=== PATIENT | male | born 1945 | race Caucasian/White ===

== ENCOUNTER 2022-06-18 09:54 | Observation (INO) | payer MEDICARE, SELFPAY ==
[2022-06-18] VITALS (24 sets, daily range): BP systolic 113–164; BP diastolic 63–117; PULSE 53–121; RESP 12–20; TEMP 36.6–38.3; O2SAT 95–97; BMI 19.6
--- NOTE | 2022-06-18 10:19 | CRLHL7_ITS ---
For Patients: As a result of the Century Cures Act, medical imaging exams and procedure reports are released immediately into your electronic medical record. You may view this report before your referring provider. If you have questions, please contact your health care provider. INDICATION: Right-sided weakness. Unable to complete sentences. TECHNIQUE: Head CT without contrast. COMPARISON: 01/17/2011. FINDINGS: CSF spaces: Within normal limits for age. Brain parenchyma and extra-axial spaces: There are nonspecific low attenuation white matter changes consistent with chronic microvascular disease. Chance-white differentiation is preserved. No sign of mass, hemorrhage, or midline shift. Skull base and calvarium: The visualized paranasal sinuses and mastoid air cells demonstrate no acute or significant findings. The visualized orbits are grossly unremarkable. No skull fractures. IMPRESSION: No acute or significant findings. Please note that all CT scans at this facility use dose modulation, iterative reconstruction, and/or weight-based dosing when appropriate to reduce radiation dose to as low as reasonably achievable. Dictated by Yunier Osuna MD @ 06/18/2022 10:46:13 AM (Electronically Signed)
--- NOTE | 2022-06-18 11:00 | CRLHL7_ITS ---
For Patients: As a result of the Century Cures Act, medical imaging exams and procedure reports are released immediately into your electronic medical record. You may view this report before your referring provider. If you have questions, please contact your health care provider. INDICATION: Acute stroke, aphasia, right-sided weakness. TECHNIQUE: CTA neck with contrast bolus tracking, 3D angiographic rendering using maximum intensity projection (MIP). FINDINGS: There is no significant carotid artery stenosis or dissection. There is atherosclerotic plaque at the origin of the left vertebral artery resulting in moderate stenosis. The soft tissues of the neck are within normal limits. The cervical spine is in normal alignment. Degenerative changes are noted in the cervical spine. IMPRESSION: No significant carotid artery stenosis or dissection. Moderate left vertebral artery origin stenosis. Please note that all CT scans at this facility use dose modulation, iterative reconstruction, and/or weight-based dosing when appropriate to reduce radiation dose to as low as reasonably achievable. Dictated by Bartolo Corbin MD @ 06/18/2022 4:11:44 PM (Electronically Signed)
--- NOTE | 2022-06-18 11:00 | CRLHL7_ITS ---
For Patients: As a result of the Century Cures Act, medical imaging exams and procedure reports are released immediately into your electronic medical record. You may view this report before your referring provider. If you have questions, please contact your health care provider. INDICATION: Acute stroke, aphasia, right-sided weakness. TECHNIQUE: CTA head with contrast bolus tracking, 3D angiographic rendering using maximum intensity projection (MIP). FINDINGS: There is scattered intracranial atherosclerotic disease. There is normal opacification of the intracranial vasculature. There is no large vessel occlusion. No aneurysm is identified. IMPRESSION: No large vessel occlusion. Please note that all CT scans at this facility use dose modulation, iterative reconstruction, and/or weight-based dosing when appropriate to reduce radiation dose to as low as reasonably achievable. Dictated by Bartolo Corbin MD @ 06/18/2022 4:08:59 PM (Electronically Signed)
[2022-06-18 11:16] LABS: Basophils Absolute Auto 0.04 K/uL (0.00-0.30); Basophils Percent Auto 0.6 % (0.0-3.0); Eosinophils Absolute Auto 0.04 K/uL (0.00-0.50); Eosinophils Percent Auto 0.6 % (0.0-7.0); Hematocrit 34.3 % (37.0-53.0); Hemoglobin* 11.1 gm/dL (13.5-17.5); Lymphocytes Percent Auto 11.3 % (20-44); Mean Corpuscular HGB Conc 32 gm/dL (32-36); Mean Corpuscular Hemoglobin 29 pg (26-34); Mean Corpuscular Volume 91 fL (80-100); Monocytes Percent Auto 9.4 % (0.0-11.0); Neutrophils Percent Auto 78.1 % (42.0-72.0); Platelet Count* 351 K/uL (140-440); Red Blood Count 3.77 m/uL (4.30-5.90); White Blood Count* 6.71 K/uL (4.50-11.00)
[2022-06-18] MEDS: ASPIRIN 81 MG TAB.CHEW 324 MG PO (11:17)
[2022-06-18 11:35] LABS: Chloride* 101 mmol/L (96-114); Sodium* 134 mmol/L (135-149)
[2022-06-18 11:36] LABS: INR 1.11 (0.91-1.10); Potassium* 3.8 mmol/L (3.6-5.1); Prothrombin Time 14.9 Seconds
[2022-06-18 11:37] LABS: Partial Thromboplastin Time* 45 Seconds (23-33)
[2022-06-18 11:38] LABS: Creatinine* 0.4 mg/dL (0.5-1.5); Estimated Glomerular Filt Rate 113 ml/min
[2022-06-18 11:39] LABS: Blood Urea Nitrogen* 11 mg/dL (7-30); Calcium* 8.5 mg/dL (8.4-10.6); Carbon Dioxide* 25 mmol/L (20-32); Glucose* 108 mg/dL (60-115)
[2022-06-18 11:40] LABS: Slide Review Reflex No
[2022-06-18 11:42] LABS: C Reactive Protein* 4.8 mg/dL (0.5-1.0)
[2022-06-18 11:55] LABS: PCR FLU A Negative PCR FLU A (Negative); PCR FLU B Negative PCR FLU B (Negative); PCR RSV Negative PCR RSV (Negative)
[2022-06-18 12:06] LABS: SARS PCR* Negative SARS-CoV-2 (Negative)
[2022-06-18 12:11] LABS: Albumin* 3.6 g/dL (3.3-5.0)
[2022-06-18 12:14] LABS: Bilirubin Direct* 0.4 mg/dL (0.0-0.5); Bilirubin Total* 1.4 mg/dL (0.1-1.5); Total Protein* 6.6 g/dL (6.0-8.3)
[2022-06-18 12:15] LABS: Alanine Aminotransferase* 13 U/L (4-50); Alkaline Phosphatase* 51 U/L (40-150); Aspartate Amino Transferase* 16 U/L (12-35)
[2022-06-18 12:28] LABS: Ethanol* < 0.01 % (0.01-0.03); NT Pro B Type NatriureticPept* 1580 pg/mL
[2022-06-18 12:41] LABS: Basophils Absolute Auto 0.06 K/uL (0.00-0.30); Basophils Percent Auto 0.9 % (0.0-3.0); Eosinophils Absolute Auto 0.03 K/uL (0.00-0.50); Eosinophils Percent Auto 0.4 % (0.0-7.0); Hematocrit 32.3 % (37.0-53.0); Hemoglobin* 10.5 gm/dL (13.5-17.5); Lymphocytes Percent Auto 11.3 % (20-44); Mean Corpuscular HGB Conc 33 gm/dL (32-36); Mean Corpuscular Hemoglobin 29 pg (26-34); Mean Corpuscular Volume 91 fL (80-100); Monocytes Percent Auto 9.3 % (0.0-11.0); Neutrophils Percent Auto 78.1 % (42.0-72.0); Platelet Count* 338 K/uL (140-440); Red Blood Count 3.57 m/uL (4.30-5.90); White Blood Count* 6.88 K/uL (4.50-11.00)
[2022-06-18 12:43] LABS: Troponin, Point-of-Care* 0.01 ng/ml (0.01-0.04)
[2022-06-18 12:47] LABS: Slide Review Reflex No
[2022-06-18] MEDS: 0.9 % SODIUM CHLORIDE 1000 ml 1,000 ML IV (13:56)
[2022-06-18] MEDS: ACETAMINOPHEN 500 MG TABLET 1000 MG PO (13:56)
[2022-06-18 14:02] LABS: Amphetamine Screen Urine Negative (Negative); Barbiturate Screen Urine Negative (Negative); Benzodiazepines Screen Urine Negative (Negative); Cannabinoid Screen Urine Negative (Negative); Cocaine Screen Urine Negative (Negative); Methadone Screen Urine Negative (Negative); Methamphetamines Screen Urine Negative (Negative); Opiate Screen Urine Negative (Negative); Oxycodone Screen Urine Negative (Negative); Phencyclidine Screen Urine Negative (Negative); Tricyclic Antidepressant Urine Negative (Negative)
[2022-06-18 14:48] LABS: Appearance Urine Clear (Clear); Bilirubin Urine Negative (Negative); Blood Urine 1+ (Negative); Color Urine Yellow (Yellow); Glucose Urine Negative (Negative); Ketones Urine 1+ (Negative); Leukocyte Esterase Urine Negative (Negative); Nitrite Urine Negative (Negative); Protein Urine Trace (Negative)
[2022-06-18] MEDS: THIAMINE 100 MG TABLET PO (14:55)
[2022-06-18 15:10] LABS: RBC Urine 0-2 (0-2)
--- NOTE | 2022-06-18 16:01 | ED_ITS ---
HPI - Neuro Symptoms/Deficit General Date Seen: 06/18/22 Chief Complaint: Neuro Symptoms/Altered Deficit Stated Complaint: Not able to form complete sentences Time Seen by Provider: 06/18/22 10:18 Source: patient and family Mode of arrival: ambulatory Limitations: no limitations History of Present Illness HPI Narrative: Patient is 76-year-old gentleman lives at home, whose last known well was Friday, his son picked him up today to bring him to a medical appointment the [facility], he was disheveled, and speaking gibberish. This concerned his son, who brought into the emergency room, he [facility], but does see at the [facility]. Known spoken to him over the weekend, so there is no time apparent. Patient is unable to tell me if he has as any pain, history of falls, or injury. History of alcohol use in the past but none recently according to family. Onset (ago): day(s) Timing confirmed by: family member Location: speech History of same: No Severity: moderate Quality: weak Relieving factors: none Exacerbating factors: none On Anticoagulants: No Associated symptoms: confusion Treatments Prior to Arrival: none Related Data Allergies Allergy/AdvReac Type Severity Reaction Status Date / Time No Known Drug Allergies Allergy Verified 06/18/22 12:13 Review of Systems Status of ROS: Reports: unobtainable due to medical condition and unobtainable due to mental status PFSH PFS Social History Smoking Status: Light tobacco smoker Do you use any of these nicotine containing products: None How often do you have a drink containing alcohol: never AUDIT-C Alcohol total score: 0 Exam Narrative: Exam Narrative: Patient is seen in room 7, he is in no apparent distress, he is able to sit up for me, able to walk but he apparently is balance, which is not what it usually is. He really is unable to really answer any questions you have although he seems to follow commands, with lifting his hands and his feet, and also turning his head. He gives a really standard confabulation response. GCS is 10 out of 15. Pupils are equal round reactive to light, arcus senilis is noted bilaterally, TMs are normal, his neck is supple, carotid upstrokes are equal bilaterally, with no carotid bruits, his JVP is flat, he does have a very subtle right-sided facial droop I can notice, when I get him to smile. Anaesthetic Technician strengths are weaker on the right as opposed to the left, as is biceps and triceps on the right. Son tells me that he is right-hand dominant. Lower extremities seem symmetrical bilaterally, chest is good air entry bilaterally with no wheezing crackles noted heart sounds no clicks murmurs or gallops in his abdomen is soft, no guarding no tenderness no masses. Normal male genitalia is noted. Seems a little bit thin and emaciated bilaterally Const: Vital Signs, click to edit/add: Vital Signs - 24 hr 06/18/22 10:03 06/18/22 10:40 06/18/22 10:41 Temperature 97.8 F Pulse Rate 104 H 98 Pulse Rate [Right Pulse Oximeter] 97 Respiratory Rate 18 Blood Pressure 153/101 H Blood Pressure [Ri ght Upper Arm] 164/97 H Pulse Oximetry 96 95 96 Oxygen Delivery Me thod Room Air 06/18/22 11:00 06/18/22 11:02 06/18/22 11:30 Temperature Pulse Rate 106 H 113 H 92 Pulse Rate [Right Pulse Oximeter] Respiratory Rate Blood Pressure 113/89 Blood Pressure [Ri ght Upper Arm] Pulse Oximetry 96 96 96 Oxygen Delivery Me thod 06/18/22 11:32 06/18/22 12:00 06/18/22 13:56 Temperature 101.0 F H 101 F H Pulse Rate 100 Pulse Rate [Right Pulse Oximeter] Respiratory Rate Blood Pressure 147/86 H Blood Pressure [Ri ght Upper Arm] Pulse Oximetry 95 Oxygen Delivery Me thod 06/18/22 11:33 06/18/22 12:00 06/18/22 12:31 Temperature Pulse Rate 121 H Pulse Rate [Right Pulse Oximeter] Respiratory Rate Blood Pressure 147/82 H 148/117 H Blood Pressure [Ri ght Upper Arm] Pulse Oximetry 96 Oxygen Delivery Me thod 06/18/22 12:46 06/18/22 13:01 06/18/22 13:55 Temperature 100 F H Pulse Rate Pulse Rate [Right Pulse Oximeter] Respiratory Rate Blood Pressure 147/99 H 145/86 H 142/84 H Blood Pressure [Ri ght Upper Arm] Pulse Oximetry Oxygen Delivery Me thod 06/18/22 14:31 06/18/22 14:49 06/18/22 14:30 Temperature 100.1 F H 100.1 F H Pulse Rate Pulse Rate [Right Pulse Oximeter] Respiratory Rate Blood Pressure 130/75 Blood Pressure [Ri ght Upper Arm] Pulse Oximetry Oxygen Delivery Me thod 06/18/22 14:30 06/18/22 15:00 06/18/22 15:30 Temperature Pulse Rate Pulse Rate [Right Pulse Oximeter] Respiratory Rate Blood Pressure 130/75 133/103 H 136/85 Blood Pressure [Ri ght Upper Arm] Pulse Oximetry Oxygen Delivery Me thod Documenting provider has reviewed patient's vital signs: yes Course Course Hospital Course: Course in the emergency room, head CT was done, this is no evidence of stroke in the patient was given aspirin based on this. CT angio of the head, and neck did not show any acute abnormalities, urinalysis should not show any evidence of a cath problem on urinalysis. Basic metabolic profile was reassuring, C-reactive protein was slightly elevated at 4.8, urine drug screen was negative blood alcohol was negative, patient received a fine min here, has a my concerned this possibly was a warning keys type confabulation situation, I spoke to the patient multiple times, and son. They are rather unhappy that I do not have a formal diagnosis, but I explained to them the fact that move last known well would preclude us doing anything aggressive with clot busting agents. At this point I think 1 of 2 things are is occurring here, in the setting of the confabulation either he has had a stroke, or possibly this is a werenikes type situation. The other possibility is infection, and blood cultures were done. His temperature came down nicely with Tylenol, and his white count is not elevated, and I do not think there is any evidence of sepsis here, with his normal vital signs. I do think we have the element time here in watching, he may require an MRI as an inpatient. I I discussed with the inpatient physician, Dr. Biswas for admission. Vital Signs Vital signs: Initial Vital Signs Temperature 97.8 F 06/18/22 10:03 Temperature Source Temporal Artery Scan 06/18/22 10:03 Pulse Rate 97 06/18/22 10:03 Respiratory Rate 18 06/18/22 10:03 Blood Pressure 164/97 H 06/18/22 10:03 Blood Pressure Mean 119 H 06/18/22 10:03 Blood Pressure Position Sitting 06/18/22 10:03 Pulse Oximetry 96 06/18/22 10:03 Oxygen Delivery Method Room Air 06/18/22 10:03 Vital Signs Temperature 97.8 F 06/18/22 10:03 Pulse Rate 97 06/18/22 10:03 Respiratory Rate 18 06/18/22 10:03 Blood Pressure 164/97 H 06/18/22 10:03 Pulse Oximetry 96 06/18/22 10:03 Oxygen Delivery Method Room Air 06/18/22 10:03 Temperature 100.1 F H 06/18/22 14:49 Pulse Rate 121 H 06/18/22 11:33 Respiratory Rate 18 06/18/22 10:03 Blood Pressure 136/85 06/18/22 15:30 Pulse Oximetry 96 06/18/22 11:33 Oxygen Delivery Method Room Air 06/18/22 10:03 MDM - Neuro Symptoms/Deficit MDM Narrative Medical decision making narrative: Multiple differential diagnoses were considered for altered mental status. The life-threatening differential diagnosis considered include: Meningitis/encepha litis, bacteremia, subdural, cerebrovascular accident, SAH, and hypertensive encephalopathy. Other differential diagnosis included include medication effect, hypoxia, hypoglycemia, hypercalcemia, hypo or hypernatremia, hypothyroidism, hepatic encephalopathy, carbon monoxide poisoning, UTI, pneumonia, depression, seizure, as well as other etiologies. Medical Records Attestation: I reviewed the patient's medical records. Lab Data Attestation: I reviewed the patient's lab results. Labs: Lab Results 06/18/22 06/18/22 06/18/22 Range/Units 10:45 11:54 12:09 WBC 6.71 6.88 (4.50-11.00) K/uL RBC 3.77 L 3.57 L (4.30-5.90) m/uL Hgb 11.1 L 10.5 L (13.5-17.5) gm/dL Hct 34.3 L 32.3 L (37.0-53.0) % MCV 91 91 (80-100) fL MCH 29 29 (26-34) pg MCHC 32 33 (32-36) gm/dL RDW Coeff of Ritika 13.0 13.0 (11.5-15.5) % Plt Count 351 338 (140-440) K/uL Neut % (Auto) 78.1 H 78.1 H (42.0-72.0) % Lymph % (Auto) 11.3 L 11.3 L (20-44) % [place] % (Auto) 9.4 9.3 (0.0-11.0) % Eos % (Auto) 0.6 0.4 (0.0-7.0) % Baso % (Auto) 0.6 0.9 (0.0-3.0) % Neut # (Auto) 5.20 5.40 (1.7-7.0) K/uL Lymph # (Auto) 0.80 L 0.80 L (0.90-2.90) K/uL [place] # (Auto) 0.60 0.60 (0.00-0.90) K/UL Eos # (Auto) 0.04 0.03 (0.00-0.50) K/uL Baso # (Auto) 0.04 0.06 (0.00-0.30) K/uL INR 1.11 H (0.91-1.10) APTT 45 H (23-33) Seconds Sodium 134 L (135-149) mmol/L Potassium 3.8 (3.6-5.1) mmol/L Chloride 101 (96-114) mmol/L Carbon Dioxide 25 (20-32) mmol/L BUN 11 (7-30) mg/dL Creatinine 0.4 L (0.5-1.5) mg/dL Estimated GFR 113 ml/min Glucose 108 (60-115) mg/dL Calcium 8.5 (8.4-10.6) mg/dL Total Bilirubin 1.4 (0.1-1.5) mg/dL Direct Bilirubin 0.4 (0.0-0.5) mg/dL AST 16 (12-35) U/L ALT 13 (4-50) U/L Alkaline Phosphatase 51 (40-150) U/L C-Reactive Protein 4.8 H (0.5-1.0) mg/dL NT-Pro-B Natriuret Pep 1580 pg/mL Total Protein 6.6 (6.0-8.3) g/dL Albumin 3.6 (3.3-5.0) g/dL Urine Color (Yellow) Urine Appearance (Clear) Urine pH (5.0-8.5) Ur Specific [place] (1.000-1.030) Urine Protein (Negative) Urine Glucose (UA) (Negative) Urine Ketones (Negative) Urine Blood (Negative) Urine Nitrite (Negative) Urine Bilirubin (Negative) Urine Urobilinogen (0.2-1.0) Ur Leukocyte Esterase (Negative) Urine RBC (0-2) Urine WBC (0-5) Ur Squamous Epith Cells (None-Few) Urine Bacteria (None) Urine Opiates Screen (Negative) Ur Oxycodone Screen (Negative) Urine Methadone Screen (Negative) Ur Propoxyphene Screen (Negative) Ur Barbiturates Screen (Negative) U Tricyclic Antidepress (Negative) Ur Phencyclidine Scrn (Negative) Ur Amphetamines Screen (Negative) U Methamphetamines Scrn (Negative) U Benzodiazepines Scrn (Negative) Urine Cocaine Screen (Negative) U Marijuana (THC) Screen (Negative) Ur Drug Screen Comment Ethyl Alcohol < 0.01 L (0.01-0.03) % SARS-CoV-2 (PCR) Negative SARS-CoV-2 (Negative) Influenza Type A (PCR) Negative PCR FLU A (Negative) Influenza Type B (PCR) Negative PCR FLU B (Negative) RSV (PCR) Negative PCR RSV (Negative) POC Troponin I 0.01 (0.01-0.04) ng/ml 06/18/22 Range/Units 13:47 WBC (4.50-11.00) K/uL RBC (4.30-5.90) m/uL Hgb (13.5-17.5) gm/dL Hct (37.0-53.0) % MCV (80-100) fL MCH (26-34) pg MCHC (32-36) gm/dL RDW Coeff of Ritika (11.5-15.5) % Plt Count (140-440) K/uL Neut % (Auto) (42.0-72.0) % Lymph % (Auto) (20-44) % [place] % (Auto) (0.0-11.0) % Eos % (Auto) (0.0-7.0) % Baso % (Auto) (0.0-3.0) % Neut # (Auto) (1.7-7.0) K/uL Lymph # (Auto) (0.90-2.90) K/uL [place] # (Auto) (0.00-0.90) K/UL Eos # (Auto) (0.00-0.50) K/uL Baso # (Auto) (0.00-0.30) K/uL INR (0.91-1.10) APTT (23-33) Seconds Sodium (135-149) mmol/L Potassium (3.6-5.1) mmol/L Chloride (96-114) mmol/L Carbon Dioxide (20-32) mmol/L BUN (7-30) mg/dL Creatinine (0.5-1.5) mg/dL Estimated GFR ml/min Glucose (60-115) mg/dL Calcium (8.4-10.6) mg/dL Total Bilirubin (0.1-1.5) mg/dL Direct Bilirubin (0.0-0.5) mg/dL AST (12-35) U/L ALT (4-50) U/L Alkaline Phosphatase (40-150) U/L C-Reactive Protein (0.5-1.0) mg/dL NT-Pro-B Natriuret Pep pg/mL Total Protein (6.0-8.3) g/dL Albumin (3.3-5.0) g/dL Urine Color Yellow (Yellow) Urine Appearance Clear (Clear) Urine pH 7.0 (5.0-8.5) Ur Specific [place] 1.020 (1.000-1.030) Urine Protein Trace A (Negative) Urine Glucose (UA) Negative (Negative) Urine Ketones 1+ A (Negative) Urine Blood 1+ A (Negative) Urine Nitrite Negative (Negative) Urine Bilirubin Negative (Negative) Urine Urobilinogen 4.0 A (0.2-1.0) Ur Leukocyte Esterase Negative (Negative) Urine RBC 0-2 (0-2) Urine WBC 2-5 (0-5) Ur Squamous Epith Cells None (None-Few) Urine Bacteria None (None) Urine Opiates Screen Negative (Negative) Ur Oxycodone Screen Negative (Negative) Urine Methadone Screen Negative (Negative) Ur Propoxyphene Screen Negative (Negative) Ur Barbiturates Screen Negative (Negative) U Tricyclic Antidepress Negative (Negative) Ur Phencyclidine Scrn Negative (Negative) Ur Amphetamines Screen Negative (Negative) U Methamphetamines Scrn Negative (Negative) U Benzodiazepines Scrn Negative (Negative) Urine Cocaine Screen Negative (Negative) U Marijuana (THC) Screen Negative (Negative) Ur Drug Screen Comment See Note Ethyl Alcohol (0.01-0.03) % SARS-CoV-2 (PCR) (Negative) Influenza Type A (PCR) (Negative) Influenza Type B (PCR) (Negative) RSV (PCR) (Negative) POC Troponin I (0.01-0.04) ng/ml Imaging Data CT scan - head: Attestation: I have reviewed the pertinent imaging results. My impression: Patient: DELVIS AREVALO Facility:?[facility] Patient ID:?[id number] Site Patient ID:?[id number]. Site :?[id number] Study:?CT Head STROKE PROTOCOL wo contrast STROKE-06/18/2022 10:40:16 AM Ordering Physician:Dixie Gallegos Final Report: INDICATION: Right-sided weakness. Unable to complete sentences. TECHNIQUE: Head CT without contrast. COMPARISON: 01/17/2011. FINDINGS: CSF spaces: Within normal limits for age. Brain parenchyma and extra-axial spaces: There are nonspecific low attenuation white matter changes consistent with chronic microvascular disease. Chance-white differentiation is preserved. No sign of mass, hemorrhage, or midline shift. Skull base and calvarium: The visualized paranasal sinuses and mastoid air cells demonstrate no acute or significant findings. The visualized orbits are grossly unremarkable. No skull fractures. IMPRESSION: No acute or significant findings. Please note that all CT scans at this facility use dose modulation, iterative reconstruction, and/or weight-based dosing when appropriate to reduce radiation dose to as low as reasonably achievable. Dictated by Ynuier Osuna MD @ 06/18/2022 10:46:13 AM ----- ADDENDUM ----- Results were communicated to Dr. Carrillo on 06/18/2022 at 10:49 a.m. Dictated by Yunier Osuna MD @ Jun 18 2022 11:34AM (Electronic Signature) Patient: DELVIS AREVALO Facility:?[facility] Patient ID:?[id number] Site Patient ID:?[id number]. Site :?1945 Study:?CT Head Angio 95CC ISOVUE 370 NON ACUTE-06/18/2022 12:33:44 PM Ordering Physician:Dixie Gallegos Preliminary Report: FINDINGS: The visualized 1st and 2nd order intracranial vessels appear patent. No convincing evidence of high grade narrowing or prominent aneurysm formation. Dictated by Sha Pierce MD @ 06/18/2022 12:51:29 PM Read by:Reena Pierce MD @ 06/18/2022 12:51:37 ECG Data Attestation: I personally reviewed and interpreted this ECG as follows: ECG interpretation date: 06/18/22 Prior ECG tracings: not available for review Interpretation: EKG shows normal sinus rhythm with a short ND interval, incomplete right bundle- branch block, nothing acute. Discharge Plan Discharge Clinical Impression: Confabulation, Weakness Patient Disposition: Admitted As Inpatient Condition: Stable
--- NOTE | 2022-06-18 19:38 | PC.NURSE ---
Patient admitted from ED and bought up to unit at 1710. Brother Juan accompanied him as well as his niece. Brother stated that when he went to pick Abram up for an appointment he found him confused and sentences were not making any sense. Patient is unhappy about being admitted and per his own words wishes to leave and go home. Patients vss, he is on RA, SBA to BR, regular diet. During conversation with the patient it was noted that his sentences were completely disconnected and made no sense.
[2022-06-18] MEDS: SODIUM CHLORIDE 0.9 % (FLUSH) 10 ML SYRINGE 5 ML IVF (21:15)
[2022-06-18] MEDS: THIAMINE 250 MG in 0.9 % SODIUM CHLORIDE 100 ml 100 ML 102.5 MG IVPB (21:15)
--- NOTE | 2022-06-18 22:27 | P.IMHP_ITS ---
Hospitalist- H&P: HPI History of Present Illness Time Seen by Provider: 16:00 Date Seen: 06/18/22 Chief complaint: Not able to form complete sentences Narrative: Abram Broussard is a 76 year old man who presents to the hospital emergency department today for assessment of a change in the patient's mentation seemingly. Last time family members spoke with him were saw him was about 5 days ago. The patient's brother, Juan, went to Abram's home today to pick him up and bring him to a clinic appointment. Patient seemingly was not understanding his brother as his brother tried to speak with him, additionally the patient when he spoke seem to speak in a word salad, not making sense. Ordinarily Abram is feisty and not willing to adhere to the advice of others. Oddly enough today the patient was quite willing to come to the hospital emergency department upon his brother recommending that he do so. Patient was able to dress himself including time his own shoes, walk to the car and then into the hospital. Main problem seem to be the patient seemingly not understanding everything that was spoken to him and the patient speaking in word salad. It is difficult to get any meaningful history from the patient. Seemingly the patient is not understanding all that we ask or say to him. The patient's brother and niece are here with him in the emergency department today. The niece does call the patient's neighbors and friends and finds out that 1 of the neighbors saw the patient as recently as yesterday and that the patient was well, normal, not like he is today at all in terms of interacting. Seemingly the patient's condition changes suddenly sometime between yesterday and today. Review of Systems Status of ROS: Reports: 10 or more systems reviewed and unremarkable except as noted in History and below Narrative: Again, as best as I can tell the patient denies any other problems. He specifically denies chest heaviness, pressure, tightness, or pain. Denies syncope or near-syncope. Denies palpitations or chest fluttering. Denies cough, dyspnea at rest, dyspnea with exertion, paroxysmal nocturnal dyspnea, orthopnea. Denies lower extremity edema. Denies lightheadedness. Denies nausea or vomiting. Acknowledges decreased appetite. Denies fevers, rigors, diaphoresis. Denies trauma or injury. No recent travel or illness. Denies myalgias or arthralgias. Denies any other focal motor neurologic deficits. Denies any blood loss of any sort. The patient's brother, Juan, notes that he has been concerned that the patient seems to be gradually losing weight. On the other hand neighbors often bring meals for him and he seems to eat well enough based on what they observed. Additionally however up until 2-4 weeks ago patient had been drinking beer daily. As I review his medical records and discuss the patient's beer consumption in the past, references are made to him previously drinking anywhere from 4-12 beers daily. Mention is made in his medical records that he has had alcohol abuse disorder for number of years. PFSH PFSH Medical History Alcohol abuse ?F10.10 - Alcohol abuse, uncomplicated (ICD-10) Cataracts, bilateral ?H26.9 - Unspecified cataract (ICD-10) Essential hypertension ?I10 - Essential (primary) hypertension (ICD-10) History of cardiac arrhythmia ?Z86.79 - Personal history of other diseases of the circulatory system (ICD- 10) History of vitreous hemorrhage of left eye ?Z86.69 - Personal history of other diseases of the nervous system and sense organs (ICD-10) Hyperlipidemia ?E78.5 - Hyperlipidemia, unspecified (ICD-10) Impaired fasting glucose ?R73.01 - Impaired fasting glucose (ICD-10) Tobacco use ?Z72.0 - Tobacco use (ICD-10) Social History Highest level of school completed/degree received: high school graduate Smoking Status: Never smoker Do you use any of these nicotine containing products: None How often do you have a drink containing alcohol: never AUDIT-C Alcohol total score: 0 Non-prescribed substance use: denies use Caffeine: No service: Yes Meds Home Medications and Allergies Home Medications Medication Instructions Recorded Confirmed Type meloxicam 15 mg tablet 15 mg PO DAILY 06/18/22 06/18/22 History Home Medication Comments: 1. He was started on the meloxicam 3-4 weeks ago due to arthralgias 2. Atorvastatin 20 mg daily 3. Lisinopril 20 mg daily Allergies Allergy/AdvReac Type Severity Reaction Status Date / Time No Known Drug Allergies Allergy Verified 06/18/22 12:13 Exam Narrative: Exam Narrative: Appears in no acute distress. Appears comfortable. Awake. Interactive. Seemingly does not understand everything spoken to him. For the most part does not follow simple 1 or 2 step commands. When he does speak for the most part you can understand what he stain but he s peaking in word salad. He seems to think that he is speaking meaningfully. No other focal motor neurologic deficits. Moves all 4 extremities. Resting tremor right hand. No asterixis. Has broad-based stance and an ataxic gait. Does have muscle wasting peripherally in upper and lower extremities. Cachectic chest wall. Cranial nerves 3-12 are grossly intact including his eyes with no obvious ocular motor dysfunction. Tympanic membranes are normal. Midline nasal septum. Dentition in poor repair. Moist buccal mucosa. Neck is supple. Midline trachea. No adenopathy. Lungs are clear to auscultation. No CVA tenderness. Heart tones with regular rhythm, normal S1-S2. Abdomen is thin with active bowel sounds, soft, nontender. Extremities with trace edema pretibially bilaterally. Skin intact. Const: Vital Signs, click to edit/add: Vital Signs - 24 hr 06/18/22 10:03 06/18/22 10:40 06/18/22 10:41 Temperature 97.8 F Pulse Rate 104 H 98 Pulse Rate [Pulse Oximeter] Pulse Rate [Right Pulse Oximeter] 97 Respiratory Rate 18 Blood Pressure 153/101 H Blood Pressure [Ri ght Arm] Blood Pressure [Ri ght Upper Arm] 164/97 H Pulse Oximetry 96 95 [facility] 06/18/22 11:00 06/18/22 11:02 06/18/22 11:30 Temperature Pulse Rate 106 H 113 H 92 Pulse Rate [Pulse Oximeter] Pulse Rate [Right Pulse Oximeter] Respiratory Rate Blood Pressure 113/89 Blood Pressure [Ri ght Arm] Blood Pressure [Ri ght Upper Arm] Pulse Oximetry 96 96 96 Oxygen Delivery Ma thod 06/18/22 11:32 06/18/22 12:00 06/18/22 13:56 Temperature 101.0 F H 101 F H Pulse Rate 100 Pulse Rate [Pulse Oximeter] Pulse Rate [Right Pulse Oximeter] Respiratory Rate Blood Pressure 147/86 H Blood Pressure [Ri ght Arm] Blood Pressure [Ri ght Upper Arm] Pulse Oximetry 95 Oxygen Delivery Ma thod 06/18/22 11:33 04/25/23 12:00 06/18/22 12:31 Temperature Pulse Rate 121 H Pulse Rate [Pulse Oximeter] Pulse Rate [Right Pulse Oximeter] Respiratory Rate Blood Pressure 147/82 H 148/117 H Blood Pressure [Ri ght Arm] Blood Pressure [Ri ght Upper Arm] Pulse Oximetry 96 Oxygen Delivery Ma thod 06/18/22 12:46 06/18/22 13:01 06/18/22 13:55 Temperature 100 F H Pulse Rate Pulse Rate [Pulse Oximeter] Pulse Rate [Right Pulse Oximeter] Respiratory Rate Blood Pressure 147/99 H 145/86 H 142/84 H Blood Pressure [Ri ght Arm] Blood Pressure [Ri ght Upper Arm] Pulse Oximetry Oxygen Delivery Ma thod 06/18/22 14:31 06/18/22 14:49 06/18/22 14:30 Temperature 100.1 F H 100.1 F H Pulse Rate Pulse Rate [Pulse Oximeter] Pulse Rate [Right Pulse Oximeter] Respiratory Rate Blood Pressure 130/75 Blood Pressure [Ri ght Arm] Blood Pressure [Ri ght Upper Arm] Pulse Oximetry Oxygen Delivery Ma thod 06/18/22 14:30 06/18/22 15:00 06/18/22 15:30 Temperature Pulse Rate Pulse Rate [Pulse Oximeter] Pulse Rate [Right Pulse Oximeter] Respiratory Rate Blood Pressure 130/75 133/103 H 136/85 Blood Pressure [Ri ght Arm] Blood Pressure [Ri ght Upper Arm] Pulse Oximetry Oxygen Delivery Ma thod 06/18/22 17:10 06/18/22 18:00 06/18/22 20:45 Temperature 99 F 98.1 F Pulse Rate Pulse Rate [Pulse Oximeter] 77 Pulse Rate [Right Pulse Oximeter] Respiratory Rate 12 12 16 Blood Pressure Blood Pressure [Ri ght Arm] 131/107 H 123/65 Blood Pressure [Ri ght Upper Arm] Pulse Oximetry 95 97 Oxygen Delivery Me thod Room Air Room Air Documenting provider has reviewed patient's vital signs: yes Hospitalist - H&P: Result Labs Labs: Short CBC 06/18/22 06/18/22 Range/Units 10:45 12:09 WBC 6.71 6.88 (4.50-11.00) K/uL Hgb 11.1 L 10.5 L (13.5-17.5) gm/dL Hct 34.3 L 32.3 L (37.0-53.0) % Plt Count 351 338 (140-440) K/uL BMP 06/18/22 10:45 Sodium 134 L Potassium 3.8 Chloride 101 Carbon Dioxide 25 BUN 11 Creatinine 0.4 L Glucose 108 Calcium 8.5 Liver Function 06/18/22 Range/Units 10:45 Total Bilirubin 1.4 (0.1-1.5) mg/dL Direct Bilirubin 0.4 (0.0-0.5) mg/dL AST 16 (12-35) U/L ALT 13 (4-50) U/L Alkaline Phosphatase 51 (40-150) U/L Albumin 3.6 (3.3-5.0) g/dL Urine 06/18/22 Range/Units 13:47 Urine Color Yellow (Yellow) Urine Appearance Clear (Clear) Urine pH 7.0 (5.0-8.5) Ur Specific [place] 1.020 (1.000-1.030) Urine Protein Trace A (Negative) Urine Glucose (UA) Negative (Negative) ECG Attestation: I personally reviewed and interpreted this ECG as follows: Interpretation: Sinus rhythm. Occasional premature ventricular complexes. Incomplete right bundle-branch block. Imaging CT scan - head: Attestation: I have reviewed the pertinent imaging results. Radiologist's impression: CT without contrast demonstrates no acute abnormalities. CT angiogram demonstrates no large vessel abnormalities. Assessment and Plan Assessment and plan (1) Aphasia: Problem comment: Acute. Seemingly mixed expressive and receptive. Status: Acute (2) Ataxic gait determined by examination: Problem comment: Not acute. Chronic according to patient's brother and niece. Status: Acute (3) Alcohol abuse: Problem comment: Presumably has not had consumed alcohol for the last 2-4 weeks. The large amount of urobilinogen in his urine is concerning for the possibility of underlying cirrhosis, I doubt hemolytic anemia causing the urobilinogen in the urine. Status: Acute (4) Confabulation: Problem comment: I am concerned about the possibility of a Wernicke encephalopathy in this patient. Status: Acute Plan 1. Reviewed with patient, patient's brother, Juan, and patient's niece, Kayla. Abram is initially hesitant to be admitted but then agrees to proceed with persuasion from his brother and niece. 2. MRI of the head to assess for possible stroke in Broca's area or Wernicke ease area. With his recent initiation of meloxicam he certainly would be at a much higher risk of getting stroke from this. I discontinued the meloxicam promptly. For now I am not starting aspirin. 3. Patient is at high risk for Wernicke encephalopathy. He certainly has a lot of the criteria for Wernicke's encephalopathy. Unfortunately there is no laboratory diagnostic testing for this. This is in great measure a diagnosis of exclusion in the setting of high degree of suspicion. As such, I am initiating IV thiamin 250 mg IV every 8 hours for 3 days. If we continue to be suspicious that this is indeed a Wernicke's encephalopathy a need to continue thiamin 20 50 mg IV once daily for 5 additional days before we can switch to the oral. 4. I will order a abdominal ultrasound to assess the anatomy of his liver in particular. Again I am worried about the possibility underlying cirrhosis with a urobilinogen that I am seeing in the urine. 5. With pharmacy review his outside medications for confirmation. 6. With physical therapy, occupational therapy, and speech therapy assess the patient. I will also have social security benefits interviewer to assist with discharge disposition planning. It is possible patient may not be in a position to return home due to safety concerns. Patient's brother Juan understands this.
[2022-06-18] MEDS: 0.9 % SODIUM CHLORIDE 250 ml IV (22:45)
[2022-06-19] VITALS (7 sets, daily range): BP systolic 121–144; BP diastolic 66–84; PULSE 62–105; RESP 16–22; TEMP 36.4–37.6; O2SAT 94–98
[2022-06-19 06:16] LABS: HCO3 VBG 23 mmol/L (21-28); Lactate* 0.8 mmol/L (0.5-1.9); PCO2 VBG 33 mmHG (40-50); PO2 VBG 57.7 mmHG (25-47); pH VBG 7.454 (7.32-7.43)
[2022-06-19 06:28] LABS: Hemoglobin* 9.3 gm/dL (13.5-17.5); Immature Reticulocyte Fraction 9.6 % (2.3-13.4); Reticulocyte Hemoglobin Equivi 27.7 pg (29.0-35.0); Reticulocyte Percent 1.1 % (0.5-2.0); Reticulocytes Absolute 0.03 # (0.03-0.08)
[2022-06-19 06:50] LABS: Chloride* 103 mmol/L (96-114); Sodium* 131 mmol/L (135-149)
[2022-06-19 06:51] LABS: Iron* 35 ug/dL (49-181); Potassium* 3.8 mmol/L (3.6-5.1)
[2022-06-19 06:53] LABS: Blood Urea Nitrogen* 12 mg/dL (7-30); Carbon Dioxide* 22 mmol/L (20-32); Cholesterol* 80 mg/dL (90-199); Creatinine* 0.4 mg/dL (0.5-1.5); Est. Creatinine Clearance* 49.61; Estimated Glomerular Filt Rate 112 ml/min; Glucose* 74 mg/dL (60-115)
[2022-06-19 06:54] LABS: Calcium* 7.9 mg/dL (8.4-10.6); HDL Cholesterol* 35 mg/dL (>=40); LDL Cholesterol Calculated 32 mg/dL (<100); Magnesium* 1.6 mg/dL (1.5-2.6); Phosphorus* 3.3 mg/dL (2.5-4.5); Triglycerides* 65 mg/dL (40-149)
--- NOTE | 2022-06-19 07:00 | CRLHL7_ITS ---
For Patients: As a result of the Century Cures Act, medical imaging exams and procedure reports are released immediately into your electronic medical record. You may view this report before your referring provider. If you have questions, please contact your health care provider. INDICATION: acute Broca`s aphasia TECHNIQUE: Noncontrast Sagittal T1, Axial FSE T2, Flair, DWI images submitted. COMPARISON: CT angiogram and had CT a previous day FINDINGS: Study is markedly degraded on almost all acquisitions secondary to motion which limits fine detail evaluation. The scalp and calvarium are normal. The superior sagittal sinus demonstrates normal venous flow. The corpus callosum is normal in shape and signal intensity. The posterior fossa is unremarkable. The pituitary and sella are normal. The brainstem and craniocervical junction are unremarkable. The upper cervical spinal cord and spine are normal. 8 x 4 millimeter area of restricted diffusion within the posterior aspect the left basal ganglia external capsule.. The susceptibility weighted sequences reveal no gross evidence of acute or chronic hemorrhage. The ventricles are normal in size and position without evidence of hydrocephalus. There is mild, age-appropriate generalized atrophy. The visualized portions of the orbits, mastoids and paranasal sinuses are grossly unremarkable. Normal flow voids are grossly demonstrated in the carotid arteries and basilar artery. 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 Dictated by Sundeep Piper MD @ 06/19/2022 1:26:35 PM (Electronically Signed)
[2022-06-19 07:02] LABS: Percent Iron Saturation 17 % (20-50); Total Iron Binding Capacity 212 ug/dL (261-462)
--- NOTE | 2022-06-19 07:15 | CRLHL7_ITS ---
For Patients: As a result of the Century Cures Act, medical imaging exams and procedure reports are released immediately into your electronic medical record. You may view this report before your referring provider. If you have questions, please contact your health care provider. INDICATION: Right upper quadrant abdomen pain. TECHNIQUE: Ultrasound abdomen limited. Sonographic images of the right upper quadrant were obtained using weaver-scale and color Doppler images. COMPARISON: None. FINDINGS: Imaging is suboptimal due to bowel gas and body habitus. Portions of the gallbladder and liver were not visualized and the pancreas was not visualized. Liver: Partially obscured. No definite findings of cirrhosis. No focal hepatic lesion detected. Gallbladder: Partially obscured. No cholelithiasis detected. Gallbladder wall measures 1.4 millimeters, within normal limits. No pericholecystic fluid. Common bile duct: Not visualized Pancreas: Not visualized Right kidney: Normal in size. Normal echotexture and cortex. No suspicious masses, stones, or hydronephrosis. Vasculature: The visualized portion of the IVC is unremarkable. The aorta was obscured. IMPRESSION: 1. Limited examination. The pancreas and aorta were not visualized and portions of the liver and gallbladder were not visualized. 2. No definite findings of hepatic cirrhosis. If there is ongoing concern, consider CT or MRI. Dictated by Yunier Osuna MD @ 06/19/2022 8:26:03 AM (Electronically Signed)
[2022-06-19 07:40] LABS: Vitamin B12* 251 pg/mL (243-894)
--- NOTE | 2022-06-19 08:01 | PC.NURSE ---
Pt is alert is oriented to self only, arouses to name. Pt has been scoring a 10 on the [place] scale, he is still having difficulties finding words and answering with yes and no, responses are delayed. Pt has difficulties following commands. Pt slept through most of night. Pt is up A2, voiding. Pt is on a regular diet but has refused offers of food. Pt is drinking?water when prompted.
[2022-06-19] MEDS: SODIUM CHLORIDE 0.9 % (FLUSH) 10 ML SYRINGE 5 ML IVF ×2 (09:34→20:58)
[2022-06-19] MEDS: THIAMINE 250 MG in 0.9 % SODIUM CHLORIDE 100 ml 100 ML 102.5 MG IVPB (09:35)
[2022-06-19 09:55] LABS: Ammonia* < 9.0 umol/L (13.1-30.0)
--- NOTE | 2022-06-19 10:16 | NUTR.NU ---
RDN with MD consult for possible Wernicke encephalopathy. Patient is not appropriate to visit at this time. RDN will continue to monitor and follow-up prn.
--- NOTE | 2022-06-19 12:14 | PM.IMPN1 ---
Progress Note: A&P Assessment and plan (1) Aphasia: Problem details: - acute, mixed receptive and expressive Status: Acute (2) Ataxic gait determined by examination: Problem details: - not acute; chronic according to patient's brother and niece Status: Acute (3) Alcohol abuse: Problem details: - Presumably has not had consumed alcohol for the last 2-4 weeks - large amount of urobilinogen in his urine is concerning for the possibility of underlying cirrhosis, doubt hemolytic anemia causing the urobilinogen in the urine - no evidence of cirrhosis on abdominal ultrasound Status: Acute (4) CVA (cerebral vascular accident): Problem details: - MRI 06/19: 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 - reviewed with Stroke Neurology on 06/19; patient at increased risk of bleeding 2/2 ETOH hx, but anticipate ETOH cessation during rehab - initiate dual anti-platelet therapy for 30 days, then aspirin as monotherapy - TTE ordered - appreciate input from therapies and social work regarding dispo Status: Acute Plan - Per above; will require SNF versus LTAC upon discharge - reviewed with brother Juan at bedside, questions answered - discussed patient's history and goals of care with Juan; after discussion, changed code status to DNR/DNI Subjective Date Seen: 06/19/22 Interval history: No acute events overnight. Patient continues to have speech deficits and clumsiness of his right hand, unable to feed himself. MRI exhibits an acute infarct within the posterior aspect of the external capsule of the left basal ganglia. Exam Narrative: Exam Narrative: GEN: Awake and sitting up in bed HEENT: EOMIs bilaterally, no scleral icterus CV: RRR, No concerning murmurs, rubs, or gallops R: No tachypnea, no concerning wheezing Ext: wwp, no concerning edema Skin: No concerning skin lesions or rashes on exposed skin Neuro: No facial droop, noted clumsiness of R hand, able to answer yes/no questions appropriately, gait not observed Const: Vital Signs, click to edit/add: Vital Signs - 24 hr 06/18/22 13:56 06/18/22 12:31 06/18/22 12:46 Temperature 101 F H Pulse Rate Pulse Rate [Pulse Oximeter] Respiratory Rate Blood Pressure 148/117 H 147/99 H Blood Pressure [Le ft Arm] Blood Pressure [Ri ght Arm] Pulse Oximetry Oxygen Delivery Me thod 06/18/22 13:01 06/18/22 13:55 06/18/22 14:31 Temperature 100 F H 100.1 F H Pulse Rate Pulse Rate [Pulse Oximeter] Respiratory Rate Blood Pressure 145/86 H 142/84 H Blood Pressure [Le ft Arm] Blood Pressure [Ri ght Arm] Pulse Oximetry Oxygen Delivery Me thod 06/18/22 14:49 06/18/22 14:30 06/18/22 14:30 Temperature 100.1 F H Pulse Rate Pulse Rate [Pulse Oximeter] Respiratory Rate Blood Pressure 130/75 130/75 Blood Pressure [Le ft Arm] Blood Pressure [Ri ght Arm] Pulse Oximetry Oxygen Delivery Me thod 06/18/22 15:00 06/18/22 15:30 06/18/22 17:10 Temperature 99 F Pulse Rate Pulse Rate [Pulse Oximeter] Respiratory Rate 12 Blood Pressure 133/103 H 136/85 Blood Pressure [Le ft Arm] Blood Pressure [Ri ght Arm] 131/107 H Pulse Oximetry 95 Oxygen Delivery Me thod Room Air 06/18/22 18:00 06/18/22 20:45 06/18/22 19:00 Temperature 98.1 F Pulse Rate 53 L Pulse Rate [Pulse Oximeter] 77 Respiratory Rate 12 16 Blood Pressure Blood Pressure [Le ft Arm] Blood Pressure [Ri ght Arm] 123/65 Pulse Oximetry 97 Oxygen Delivery Me thod Room Air 06/18/22 23:00 06/18/22 23:00 06/18/22 23:00 Temperature Pulse Rate 67 Pulse Rate [Pulse Oximeter] 67 Respiratory Rate 16 Blood Pressure Blood Pressure [Le ft Arm] Blood Pressure [Ri ght Arm] Pulse Oximetry 96 Oxygen Delivery Me thod 06/18/22 23:00 06/18/22 23:00 06/19/22 03:45 Temperature 98.3 F 97.6 F Pulse Rate Pulse Rate [Pulse Oximeter] 72 62 Respiratory Rate 20 20 16 Blood Pressure Blood Pressure [Le ft Arm] Blood Pressure [Ri ght Arm] 118/63 127/72 Pulse Oximetry 96 96 94 Oxygen Delivery Me thod Room Air Room Air Room Air 06/19/22 07:00 06/19/22 07:00 06/19/22 07:00 Temperature 98.8 F Pulse Rate Pulse Rate [Pulse Oximeter] 65 Respiratory Rate 18 18 Blood Pressure Blood Pressure [Le ft Arm] 121/78 Blood Pressure [Ri ght Arm] Pulse Oximetry 96 96 Oxygen Delivery Me thod Room Air 06/19/22 07:00 06/19/22 07:00 06/19/22 11:00 Temperature 98.9 F Pulse Rate 65 Pulse Rate [Pulse Oximeter] 75 Respiratory Rate 18 20 Blood Pressure Blood Pressure [Le ft Arm] 123/66 Blood Pressure [Ri ght Arm] Pulse Oximetry 96 96 Oxygen Delivery Me thod Room Air Room Air Labs Labs: Laboratory Results - last 24 hr 06/18/22 06/18/22 06/18/22 10:45 11:54 12:09 WBC 6.88 RBC 3.57 L Hgb 10.5 L Hct 32.3 L MCV 91 MCH 29 MCHC 33 RDW Coeff of Ritika 13.0 Plt Count 338 Neut % (Auto) 78.1 H Lymph % (Auto) 11.3 L [place] % (Auto) 9.3 Eos % (Auto) 0.4 Baso % (Auto) 0.9 Neut # (Auto) 5.40 Lymph # (Auto) 0.80 L [place] # (Auto) 0.60 Eos # (Auto) 0.03 Baso # (Auto) 0.06 Absolute Retic Percent Retic Immature Retic Fraction Retic Hgb Equivalent VBG pH VBG pCO2 VBG pO2 VBG HCO3 Sodium Potassium Chloride Carbon Dioxide BUN Creatinine Estimated Creat Clear Estimated GFR Glucose Lactate Calcium Phosphorus Magnesium Iron TIBC % Saturation Ferritin Total Bilirubin 1.4 Direct Bilirubin 0.4 AST 16 ALT 13 Alkaline Phosphatase 51 Ammonia NT-Pro-B Natriuret Pep 1580 Total Protein 6.6 Albumin 3.6 Triglycerides Cholesterol LDL Cholesterol, Calc HDL Cholesterol Vitamin B12 TSH Urine Color Urine Appearance Urine pH Ur Specific [place] Urine Protein Urine Glucose (UA) Urine Ketones Urine Blood Urine Nitrite Urine Bilirubin Urine Urobilinogen Ur Leukocyte Esterase Urine RBC Urine WBC Ur Squamous Epith Cells Urine Bacteria Urine Opiates Screen Ur Oxycodone Screen Urine Methadone Screen Ur Propoxyphene Screen Ur Barbiturates Screen U Tricyclic Antidepress Ur Phencyclidine Scrn Ur Amphetamines Screen U Methamphetamines Scrn U Benzodiazepines Scrn Urine Cocaine Screen U Marijuana (THC) Screen Ur Drug Screen Comment Ethyl Alcohol < 0.01 L POC Troponin I 0.01 04/06/19/22 06/19/22 13:47 05:55 09:17 WBC RBC Hgb 9.3 L Hct MCV MCH MCHC RDW Coeff of Ritika Plt Count Neut % (Auto) Lymph % (Auto) [place] % (Auto) Eos % (Auto) Baso % (Auto) Neut # (Auto) Lymph # (Auto) [place] # (Auto) Eos # (Auto) Baso # (Auto) Absolute Retic 0.03 Percent Retic 1.1 Immature Retic Fraction 9.6 Retic Hgb Equivalent 27.7 L VBG pH 7.454 H VBG pCO2 33 L VBG pO2 57.7 H VBG HCO3 23 Sodium 131 L Potassium 3.8 Chloride 103 Carbon Dioxide 22 BUN 12 Creatinine 0.4 L Estimated Creat Clear 49.61 Estimated GFR 112 Glucose 74 Lactate 0.8 Calcium 7.9 L Phosphorus 3.3 Magnesium 1.6 Iron 35 L TIBC 212 L % Saturation 17 L Ferritin 165.0 Total Bilirubin Direct Bilirubin AST ALT Alkaline Phosphatase Ammonia < 9.0 L NT-Pro-B Natriuret Pep Total Protein Albumin Triglycerides 65 Cholesterol 80 L LDL Cholesterol, Calc 32 HDL Cholesterol 35 L Vitamin B12 251 TSH 2.410 Urine Color Yellow Urine Appearance Clear Urine pH 7.0 Ur Specific [place] 1.020 Urine Protein Trace A Urine Glucose (UA) Negative Urine Ketones 1+ A Urine Blood 1+ A Urine Nitrite Negative Urine Bilirubin Negative Urine Urobilinogen 4.0 A Ur Leukocyte Esterase Negative Urine RBC 0-2 Urine WBC 2-5 Ur Squamous Epith Cells None Urine Bacteria None Urine Opiates Screen Negative Ur Oxycodone Screen Negative Urine Methadone Screen Negative Ur Propoxyphene Screen Negative Ur Barbiturates Screen Negative U Tricyclic Antidepress Negative Ur Phencyclidine Scrn Negative Ur Amphetamines Screen Negative U Methamphetamines Scrn Negative U Benzodiazepines Scrn Negative Urine Cocaine Screen Negative U Marijuana (THC) Screen Negative Ur Drug Screen Comment See Note Ethyl Alcohol POC Troponin I
--- NOTE | 2022-06-19 13:34 | PC.SOCIAL ---
Addendum entered by SHILPI Jerez 06/20/22 10:10: Received a phone call from Mar in admissions at [facility]. Mar informed that they can accept pt for admission for 06-20-2022. Met with pt and pt's family in pt's room and provided an update. Pt's family was pleased that pt could go to [facility]. Pt's family would like to transport pt if possible. Informed pt's family that therapy will see pt in the AM and determine if it is a safe option. Provided update to charge nurse and therapy. Addendum entered by SHILPI Jasso 06/19/22 15:02: An [employer] Directive short-form and a financial POA form were filled out and notarized. Pt. did verbalize he wants his brother to ge his health care agent and financial POA. Pt. was unable to sign the forms but they were notarized. Original Note: Met with pt. and brother Juan. Pt. will need a SNF for discharge and therapies. Pt. is unable to verbalize where he would like to be placed. Juan states he lives close to [facility] so that would be his first choice, then [place]. Pt. has no legal POA for health care or financial. Pt. has verbalized Yes that he wants Juan to make medical and financial decisions for him if he cannot. [facility] [place], [facility] does not have a bed until Friday but is assessing. Pt.'s information has also sent to [facility] to assess.
--- NOTE | 2022-06-19 18:30 | PC.NURSE ---
End of Shift: Patient pleasant, uncoordinated, and can not follow direction well. Patient will say yes or no, but does not form sentences that make sense. Patient vitally stable, lungs clear, BS WNL, IV intact. Patient 2 assist, walker. Patient attempts to get up, when this occurs patient is taken to the bathroom and urinates. Patient is more restless this evening and refused to eat dinner. Patient urinating and only had smears in his brief, there was also light blood in this brief which looked like it came from his penis. Patient can not perform neuros. Patient did eat half of breakfast and lunch. Patient has no coordination.
[2022-06-20 02:45] VITALS: PULSE 85; RESP 20; TEMP 37.6; O2SAT 93
[2022-06-20 05:51] LABS: Basophils Absolute Auto 0.05 K/uL (0.00-0.30); Basophils Percent Auto 0.8 % (0.0-3.0); Eosinophils Absolute Auto 0.13 K/uL (0.00-0.50); Hematocrit 29.3 % (37.0-53.0); Hemoglobin* 9.7 gm/dL (13.5-17.5); Immature Granulocytes Abs Auto 0.01 K/uL (0.00-0.30); Immature Granulocytes Pct Auto 0.2 %; Lymphocytes Percent Auto 15.8 % (20-44); Mean Corpuscular HGB Conc 33 gm/dL (32-36); Mean Corpuscular Hemoglobin 30 pg (26-34); Mean Corpuscular Volume 89 fL (80-100); Monocytes Percent Auto 10.8 % (0.0-11.0); Neutrophils Absolute Auto 4.65 K/uL (1.7-7.0); Neutrophils Percent Auto 70.4 % (42.0-72.0); Platelet Count* 287 K/uL (140-440); RDW Coefficient of Variation % 12.7 % (11.5-15.5); Red Blood Count 3.29 m/uL (4.30-5.90); White Blood Count* 6.59 K/uL (4.50-11.00)
--- NOTE | 2022-06-20 06:00 | PC.NURSE ---
[id number] Pt slept on and off during night, incontinent of urine throughout shift. Pt gets out of bed impulsively setting off bed alarm, unsure of environment but easily directed. encouraged patient to use br but pt did not use br this shift, incontinent of urine x3. pt did not drink for me this shift, when asked if he was thirsy replied no. Majority of night patient only said get the fk out, you fkaelyn ahole and other explicit phrases. Pt did not show comprehension to what he was saying or what nurse was saying to him. Pt did have some physical aggression with staff, hitting and kicking at staff that were trying to help him with ADL's. Unable to assess if patient was aware of actions.
[2022-06-20 06:04] LABS: Slide Review Reflex No
[2022-06-20 06:06] LABS: Chloride* 100 mmol/L (96-114)
[2022-06-20 06:07] LABS: Potassium* 3.5 mmol/L (3.6-5.1); Sodium* 129 mmol/L (135-149)
[2022-06-20 06:09] LABS: Alkaline Phosphatase* 41 U/L (40-150); Aspartate Amino Transferase* 19 U/L (12-35); Bilirubin Total* 1.2 mg/dL (0.1-1.5); Blood Urea Nitrogen* 14 mg/dL (7-30); Carbon Dioxide* 22 mmol/L (20-32); Total Protein* 5.9 g/dL (6.0-8.3)
[2022-06-20 06:10] LABS: Alanine Aminotransferase* 11 U/L (4-50); Calcium* 7.8 mg/dL (8.4-10.6); Glucose* 84 mg/dL (60-115)
[2022-06-20 06:22] LABS: Creatinine* 0.4 mg/dL (0.5-1.5); Est. Creatinine Clearance* 49.61; Estimated Glomerular Filt Rate 112 ml/min
[2022-06-20 07:46] VITALS: PULSE 89
[2022-06-20 07:52] VITALS: BP 131/74; PULSE 84; RESP 18; TEMP 37.4; O2SAT 94
[2022-06-20] MEDS: CLOPIDOGREL 75 MG TABLET PO (08:36)
[2022-06-20] MEDS: THIAMINE 100 MG TABLET PO (08:37)
[2022-06-20] MEDS: ASPIRIN 81 MG TAB.CHEW PO (08:37)
[2022-06-20] MEDS: ATORVASTATIN 10 MG TABLET 80 MG PO (08:37)
[2022-06-20] MEDS: ACETAMINOPHEN 325 MG TABLET 650 MG PO (08:37)
[2022-06-20] MEDS: SODIUM CHLORIDE 0.9 % (FLUSH) 10 ML SYRINGE 5 ML IVF (08:38)
--- NOTE | 2022-06-20 08:54 | NUTR.NU ---
KARENN with MD consult for possible Wernicke's encephalopathy. KARENN spoke to MD at [facility] today, and will cancel MD consult per MD request.
--- NOTE | 2022-06-20 10:07 | P.DS_ITS ---
DS: Providers Provider Date Seen: 06/20/22 Date of admission: 06/18/22 16:56 Primary care physician: Not a Local Provider Admitting Clinician: Jarred Eugene MD Consults: PT, OT, ST, SW Attending Physician on discharge: Shelley Schuster MD Date of Discharge: 06/20/22 DS: Diagnosis Discharge Diagnosis (1) Aphasia: Status: Acute Problem details: - acute, mixed receptive and expressive (2) Ataxic gait determined by examination: Status: Acute Problem details: - not acute; chronic according to patient's brother and niece (3) Alcohol abuse: Status: Acute Problem details: - Presumably has not had consumed alcohol for the last 2-4 weeks - large amount of urobilinogen in his urine is concerning for the possibility of underlying cirrhosis, doubt hemolytic anemia causing the urobilinogen in the urine - no evidence of cirrhosis on abdominal ultrasound (4) CVA (cerebral vascular accident): Status: Acute Problem details: - MRI 06/19: 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 - reviewed with Stroke Neurology on 06/19; patient at increased risk of bleeding 2/2 ETOH hx, but will not have access to ETOH during SNF stay - initiate dual anti-platelet therapy for 30 days, then aspirin as monotherapy - TTE ordered 06/19: Final Impressions: 1. Technically limited exam. 2. LVEF estimate 60-65%. Normal LV size and wall thickness. 3. Normal RV size and global function. 4. Mild tricuspid regurgitation. 5. PASP 40 mmHg, mean RAP 3 mmHg included. 6. No pericardial effusion. DS: Summary Hospital Course Hospital Course: 77-year-old male who presented to the emergency room for acute change in mental status and expressive aphasia. CT of head and CTA in the ER were unremarkable; thrombolytics contraindicated as unknown last known well. On hospital day 1, MRI obtained, exhibited an acute infarct within the posterior aspect of the internal capsule the left basal ganglia, consistent with patient's symptoms. Reviewed case with Stroke Neurology, will treat with 30 day dual anti-platelet therapy, followed by aspirin as monotherapy. We increased his statin dose as well. Blood pressure remained stable. He continued to have word-finding difficulties with receptive and expressive aphasia; seen by therapies and SNF stay recommended. Patient was medically appropriate for discharge to [facility] on 06/20/2022. Status at Discharge Overall status at discharge: patient is not back to baseline Time Spent with Patient Time attestation: Total time spent providing and/or coordinating discharge services: Time spent: Greater than 30 minutes Specific discharge activities: Medication management, coordination with multidisciplinary team, family updates Exam Narrative: Exam Narrative: GEN: Awake, non toxic, minimally interactive HEENT: Normal external ears, EOMIs bilaterally, no scleral icterus CV: RRR, No concerning murmurs, rubs, or gallops R: LCTA bilaterally without concerning wheezing Ext: wwp, trace edema bilateral lower extremities Neuro: No facial droop, no resting tremor, unable to follow commands but noted to have clumsiness of right upper extremity Const: Vital Signs, click to edit/add: Vital Signs - 24 hr 06/19/22 11:00 06/19/22 15:00 06/19/22 15:00 Temperature 98.9 F Pulse Rate 89 Pulse Rate [Pulse Oximeter] 75 Respiratory Rate 20 Blood Pressure [Le ft Arm] 123/66 Pulse Oximetry 96 98 Oxygen Delivery Vt thod Room Air 06/19/22 15:00 06/19/22 15:00 06/19/22 15:00 Temperature 99.4 F Pulse Rate Pulse Rate [Pulse Oximeter] 105 H 105 H Respiratory Rate 22 22 22 Blood Pressure [Le ft Arm] 140/84 H Pulse Oximetry 98 98 [facility] 06/19/22 19:00 06/19/22 23:00 06/19/22 23:00 Temperature 98.9 F Pulse Rate Pulse Rate [Pulse Oximeter] 79 Respiratory Rate 20 20 Blood Pressure [Le ft Arm] 144/69 H Pulse Oximetry 94 95 95 Oxygen Delivery Vt thod Room Air Room Air 06/19/22 23:00 06/19/22 23:05 06/20/22 02:45 Temperature 99.6 F 99.6 F Pulse Rate 78 Pulse Rate [Pulse Oximeter] 85 85 Respiratory Rate 20 20 Blood Pressure [Le ft Arm] Pulse Oximetry 95 93 Oxygen Delivery Vt thod Room Air Room Air 06/20/22 07:52 06/20/22 07:52 06/20/22 07:46 Temperature Pulse Rate 89 Pulse Rate [Pulse Oximeter] Respiratory Rate Blood Pressure [Le ft Arm] Pulse Oximetry 94 94 Oxygen Delivery Me thod Room Air DS: Data Data Completed and Pending Labs on day of discharge: Labs from last 24 hours 06/20/22 05:42 WBC 6.59 RBC 3.29 L Hgb 9.7 L Hct 29.3 L MCV 89 MCH 30 MCHC 33 RDW Coeff of Ritika 12.7 Plt Count 287 Neut % (Auto) 70.4 Lymph % (Auto) 15.8 L [place] % (Auto) 10.8 Eos % (Auto) 2.0 Baso % (Auto) 0.8 Neut # (Auto) 4.65 Lymph # (Auto) 1.00 [place] # (Auto) 0.70 Eos # (Auto) 0.13 Baso # (Auto) 0.05 Sodium 129 L Potassium 3.5 L Chloride 100 Carbon Dioxide 22 BUN 14 Creatinine 0.4 L Estimated Creat Clear 49.61 Estimated GFR 112 Glucose 84 Calcium 7.8 L Total Bilirubin 1.2 AST 19 ALT 11 Alkaline Phosphatase 41 Total Protein 5.9 L Albumin 3.0 L Preliminary micro results at discharge 06/18/22 12:09 Blood Culture - Preliminary Blood NO GROWTH AFTER 24 HOURS 06/18/22 12:16 Blood Culture - Preliminary Blood NO GROWTH AFTER 24 HOURS COMPARISON: CT angiogram and had CT a previous day FINDINGS: Study is markedly degraded on almost all acquisitions secondary to motion which limits fine detail evaluation. The scalp and calvarium are normal. The superior sagittal sinus demonstrates normal venous flow. The corpus callosum is normal in shape and signal intensity. The posterior fossa is unremarkable. The pituitary and sella are normal. The brainstem and craniocervical junction are unremarkable. The upper cervical spinal cord and spine are normal. 8 x 4 millimeter area of restricted diffusion within the posterior aspect the left basal ganglia external capsule.. The susceptibility weighted sequences reveal no gross evidence of acute or chronic hemorrhage. The ventricles are normal in size and position without evidence of hydrocephalus.? There is mild, age-appropriate generalized atrophy. The visualized portions of the orbits, mastoids and paranasal sinuses are grossly unremarkable. Normal flow voids are grossly demonstrated in the carotid arteries and basilar artery. 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 Dictated by Sundeep Piper MD @ 06/19/2022 1:26:35 PM Discharge Plan Discharge Disposition: [facility] Date of Admission: 06/18/22 16:56 Attending Provider on Discharge: Shelley Schuster Primary Care Provider: Provider,Not a Local Condition: Stable Anticipated Discharge Date/Time: 06/20/22 11:00 Discharge Medications: New atorvastatin 10 mg Tablet 80 mg PO DAILY Qty: 30 0RF clopidogrel 75 mg Tablet 75 mg PO DAILY Qty: 30 0RF Rx Instructions: for 30 days, then Aspirin by itself aspirin [Children's Aspirin] 81 mg Tablet,Chewable 81 mg PO DAILY Qty: 30 0RF thiamine mononitrate (vit B1) [Vitamin B-1 (mononitrate)] 100 mg Tablet 100 mg PO DAILY Qty: 30 0RF escitalopram oxalate [Lexapro] 5 mg tablet 5 mg PO DAILY Qty: 30 0RF Continued lisinopril 20 mg tablet 20 mg PO DAILY Discontinued meloxicam 15 mg tablet 15 mg PO DAILY atorvastatin 20 mg tablet 20 mg PO DAILY prednisone 10 mg tablet 10 mg PO DIRECTED Patient Comments: 40mg daily x 4 days, 30mg x 4 days, 20mg x 4 days, 10mg x 4 days, 5mg x4 days started 06/07/22 Rx Instructions: see taper instructions Discharge Orders: Discharge Order (Routine); Ordered 06/20/22 Ordered By: Shelley Schuster Additional Instructions: 30 days of ASA + Plavix, then on ASA by itself. Activity Level: Other Activity Detail: per PT and OT Discharge Diet: Regular and Heart Healthy (2 gm sodium, low fat) Follow Up Appointments: [facility] [Outside] (Patient discharged [facility] Provider,Not a Local [Primary Care Provider] - Forms: [employer] Info Instructions Admit to: SNF Discharge Potential: Poor Length of Stay: >90 days Can use facility standing orders?: Yes Code Status: DNR/DNI TEDs: Bilateral Knee Rehab Potential: Fair Therapy: Physical Therapy, Occupational Therapy and Speech Therapy Therapy Orders: Other Therapy Orders Additional Information: CVA Oxygen: No Urinary Catheter: No Glucose Checks: n/a Next INR: n/a Orders are good >30 days: Yes Signature: Shelley Schuster MD
--- NOTE | 2022-06-20 10:10 | PC.SOCIAL ---
Discharge planning- Met with pt's family to see if they will be transporting. Pt declined PT services this AM. Family would like to transport, but is concerned for pt's safety. Offered to set up EMS transport. Reviewed cost of transport and provided form for family to sign to acknowledge payment for ambulance transport. Pt's brother signed the form. Provided update to charge nurse. Charge nurse will contact EMS and set up the transport for around 12:00 pm today. Completed Preadmission screening. Confirmation #[id number]. Faxed PAS to [facility]. Social work will follow up as necessary.
--- NOTE | 2022-06-20 13:04 | PC.NURSE ---
Pt. transferred to [facility] via [facility]. [id number] report given to Nurse Mela at [facility].
[2022-06-20 19:23] LABS: Folate, Serum 6.6 ng/mL (>=5.9)
[2022-06-20 23:20] LABS: Rapid Plasma Reagin (RPR) Non Reactive (Non Reactive)
== END 2022-06-20 13:28 ==
LOC: ED 13:33 → MEDSURG 17:00
PROVIDERS: Family Medicine; Admitting Provider Internal Medicine; Emergency Provider Family Medicine; Visit Provider Internal Medicine
DX: I63.9 Cerebral infarction, unspecified (principal); F80.2 Mixed receptive-expressive language disorder; R26.0 Ataxic gait; R29.810 Facial weakness; F10.10 Alcohol abuse, uncomplicated; R79.82 Elevated C-reactive protein (CRP); I45.10 Unspecified right bundle-branch block; H18.413 Arcus senilis, bilateral; I07.1 Rheumatic tricuspid insufficiency; R60.0 Localized edema; I10 Essential (primary) hypertension; E78.5 Hyperlipidemia, unspecified; R63.4 Abnormal weight loss; R53.1 Weakness; R41.0 Disorientation, unspecified; Z72.0 Tobacco use; Z86.69 Personal history of other diseases of the nervous system and sense organs; Z86.79 Personal history of other diseases of the circulatory system; Z66 Do not resuscitate; Z79.01 Long term (current) use of anticoagulants; Z79.899 Other long term (current) drug therapy
CPT/HCPCS: 36415; 70450; 70496; 70498; 70551; 76705; 80048; 80053; 80061; 80076; 80306; 81001; 82077; 82140; 82607; 82728; 82746; 82803; 83540; 83550; 83605; 83735; 83880; 84100; 84443; 84484; 85018; 85025; 85045; 85610; 85730; 86140; 86592; 87040; 87631; 92523; 93005; 93306; 96361; 96365; 96366; 97112; 97116; 97162; 97165; 97535; 99285; G0378; A9270; J3411; J7030; J7050; Q9967

== ENCOUNTER 2022-06-20 12:45 | Outpatient (CLI) | payer MEDICARE, SELFPAY | END 2022-06-20 12:46 | disposition home or self-care (01) | LOC: AMB 06-24 12:31 | PROVIDERS: Visit Provider Emergency Medicine Emergency Medical Services | DX: R41.82 Altered mental status, unspecified (principal) | CPT/HCPCS: A0425; A0428 ==